=== PATIENT | male | born 1990 | race Caucasian/White ===

== ENCOUNTER 2020-04-30 09:58 | Outpatient (CLI) | payer BC ==
[2020-04-30 15:11] LABS: BASOPHILS % (AUTO) 0.7 %; EOSINOPHILS # (AUTO) 0.4 10^3/uL (0.0-0.7); EOSINOPHILS % (AUTO) 9.8 %; HCT - HEMATOCRIT 41.5 % (42.0-52.0); HGB - HEMOGLOBIN 13.7 g/dL (14.0-18.0); LYMPHOCYTES # (AUTO) 1.2 10^3/uL (1.5-3.5); LYMPHOCYTES % (AUTO) 29.6 %; MEAN CORPUSCULAR HEMOGLOBIN 30.9 pg (27.0-31.0); MEAN CORPUSCULAR VOLUME 93.5 fL (80.0-94.0); MEAN PLATELET VOLUME 9.5 fL (7.4-11.4); MONOCYTES # (AUTO) 0.4 10^3/uL (0.0-1.0); MONOCYTES % (AUTO) 8.8 %; NEUTROPHILS # (AUTO) 2.1 10^3/uL (1.5-6.6); NEUTROPHILS % (AUTO) 51.1 %; PLT - PLATELET COUNT 289 10^3/uL (130-450); RED BLOOD COUNT 4.44 10^6/uL (4.70-6.10); WHITE BLOOD COUNT 4.1 x10^3/uL (4.8-10.8)
== END 2020-04-30 09:59 | disposition home or self-care (01) ==
LOC: LAB.S 09:58
PROVIDERS: ATTEND Naturopath
DX: K51.90 Ulcerative colitis, unspecified, without complications (principal); R10.84 Generalized abdominal pain; E72.11 Homocystinuria; R53.83 Other fatigue; Z71.3 Dietary counseling and surveillance
CPT/HCPCS: 36415; 85025

== ENCOUNTER 2020-05-09 10:20 | Outpatient (CLI) | payer BC ==
[2020-05-09 15:04] LABS: BASOPHILS # (AUTO) 0.1 10^3/uL (0.0-0.1); EOSINOPHILS # (AUTO) 0.2 10^3/uL (0.0-0.7); EOSINOPHILS % (AUTO) 3.4 %; HGB - HEMOGLOBIN 14.1 g/dL (14.0-18.0); LYMPHOCYTES # (AUTO) 1.3 10^3/uL (1.5-3.5); MEAN CORPUSCULAR HEMOGLOBIN 30.7 pg (27.0-31.0); MEAN CORPUSCULAR HGB CONC 33.6 g/dL (32.0-36.0); MEAN CORPUSCULAR VOLUME 91.3 fL (80.0-94.0); MEAN PLATELET VOLUME 10.2 fL (7.4-11.4); MONOCYTES # (AUTO) 0.5 10^3/uL (0.0-1.0); MONOCYTES % (AUTO) 9.8 %; NEUTROPHILS % (AUTO) 59.6 %; PLT - PLATELET COUNT 301 10^3/uL (130-450); RED CELL DISTRIBUTION WIDTH 11.9 % (12.0-15.0)
--- OUTSIDE RECORDS SUMMARY | 2020-05-15 00:45 | EXTERNAL MEDICAL SUMMARY RPT | Continuity of Care Document ---
:1990 Demographics Phone Unavailable Preferred Language Unknown Marital Status Unknown Scientologist Affiliation Unknown Race Unknown Ethnic Group Unknown Author Organization [facility] Address [address] [id number] Phone Problems date description facility [id number] Abdominal Pain [facility] [employer] Social History date description facility [id number]
== END 2020-05-09 10:21 | disposition home or self-care (01) ==
LOC: LAB.S 10:20
PROVIDERS: ATTEND Naturopath
DX: K50.90 Crohn's disease, unspecified, without complications (principal); K51.90 Ulcerative colitis, unspecified, without complications; R10.84 Generalized abdominal pain; R53.83 Other fatigue; E72.11 Homocystinuria; Z71.3 Dietary counseling and surveillance; D72.10 Eosinophilia, unspecified
CPT/HCPCS: 36415; 82274; 82728; 85025; 85651; 86140

== ENCOUNTER 2020-10-04 08:00 | Outpatient (CLI) | payer BC ==
[2020-06-08 10:16] LABS: FECAL OCCULT BLOOD (FIT) POSITIVE (NEGATIVE)
== END 2020-10-04 23:59 | disposition home or self-care (01) ==
LOC: LAB.S 08:00
PROVIDERS: ATTEND Naturopath
DX: K50.90 Crohn's disease, unspecified, without complications (principal); K51.90 Ulcerative colitis, unspecified, without complications; R10.84 Generalized abdominal pain; R53.83 Other fatigue; E72.11 Homocystinuria; M25.50 Pain in unspecified joint; Z71.3 Dietary counseling and surveillance; D72.10 Eosinophilia, unspecified
CPT/HCPCS: 82274

== ENCOUNTER 2022-12-29 15:12 | Outpatient (CLI) | payer BC ==
--- NOTE | 2022-12-29 16:39 | XRAY Report ---
PROCEDURE: Ankle 3 View RT INDICATIONS: RIGHT ANKLE SPRAIN TECHNIQUE: 3 views of the ankle were acquired. COMPARISON: None. FINDINGS: Bones: Curvilinear calcification along the inferior margin of the medial malleolus. Soft tissues: Moderate tibiotalar joint effusion. Achilles tendon appears normal. Swelling about t he ankle. IMPRESSION: Curvilinear calcification along the inferior margin of the medial malleolus, associated ankle swellin g and ankle effusion. Findings are suggestive of a chip fracture or avulsion injury. Reviewed by: Sergio Arteaga on 12/29/2022 4:38 PM PST Approved by: Sergio Arteaga on 12/29/2022 4:38 PM PST Station ID: [id number]
== END 2022-12-29 23:59 | disposition home or self-care (01) ==
LOC: DI.S 15:12
PROVIDERS: ATTEND Emergency Medicine
DX: S93.491A Sprain of other ligament of right ankle, initial encounter (principal); M25.471 Effusion, right ankle